=== PATIENT | male | born 1965 | race Caucasian/White ===

== ENCOUNTER 2019-04-23 09:34 | Inpatient (IN) | payer OTHER ==
[2019-04-23 10:28] VITALS: BMI 34.4
--- NOTE | 2019-04-23 11:01 | HP ---
CIWA Score Nausea/Vomitin Muscle Tremors: 2 Anxiety: 2 Agitation: 2 Paroxysmal Sweats: 1-Minimal Palms Moist Orientation: 0-Oriented Tacttile Disturbances: 1-Very Mild Itch/Numbness Auditory Disturbances: 1-Very Mild Visual Disturbances: 0-None Headache: 2-Mild CIWA-Ar Total Score: 13 - Admission Criteria OASAS Guidelines: Admission for Medically Managed Detox: Requires at least one of the followin. CIWA greater than 12 2. Seizures within the past 24 hours 3. Delirium tremens within the past 24 hours 4. Hallucinations within the past 24 hours 5. Acute intervention needed for co occurring medical disorder 6. Acute intervention needed for co occurring psychiatric disorder 7. Severe withdrawal that cannot be handled at a lower level of care (continued vomiting, continued diarrhea, abnormal vital signs) requiring intravenous medication and/or fluids 8. Admission ROS S - HPI Chief Complaint: i need help to stop drinking alcohol Allergies/Adverse Reactions: Allergies Allergy/AdvReac Type Severity Reaction Status Date / Time adhesive tape Allergy Rash Verified 04/23/19 10:06 peaches Allergy Mild Uncoded 04/23/19 10:06 apples Allergy Uncoded 04/23/19 10:06 pear Allergy Uncoded 04/23/19 10:06 strawberry Allergy Uncoded 04/23/19 10:06 History of Present Illness: this 53 years old male with alcohol dependence,seeking detox,withdrawal symptom, never been in detox before history of hypertension,lap sleeve gastrectomy 2016, nicotine dependence 3 cigarette/day plan for rehab after detox Exam Limitations: No Limitations - Ebola screening Have you traveled outside of the country in the last 21 days: No Have you had contact with anyone from an Ebola affected area: No Do you have a fever: No - Review of Systems Constitutional: Night Sweats, Changes in sleep EENT: reports: Nose Congestion Respiratory: reports: No Symptoms reported Cardiac: reports: No Symptoms Reported GI: reports: Nausea, Poor Appetite, Abdominal cramping : reports: No Symptoms Reported, Other (history of sleeve gastrectomy) Musculoskeletal: reports: Back Pain, Muscle Pain Integumentary: reports: Dryness Neuro: reports: No Symptoms reported Endocrine: reports: No Symptoms Reported Hematology: reports: No Symptoms Reported Psychiatric: reports: No Sypmtoms Reported, Judgement Intact, Mood/Affect Appropiate, Orientated x3 Other Systems: Reviewed and Negative Patient History - Patient Medical History Hx Anemia: No Hx Asthma: No Hx Chronic Obstructive Pulmonary Disease (COPD): No Hx Cancer: No Hx Cardiac Disorders: No Hx Congestive Heart Failure: No Hx Hypertension: Yes (on med) Hx Hypercholesterolemia: No Hx Pacemaker: No HX Cerebrovascular Accident: No Hx Seizures: No Hx Dementia: No Hx Diabetes: No Hx Gastrointestinal Disorders: Yes (sleeve gastretomy lap in 2016) Hx Liver Disease: Yes (history of cirrhosis of liver ) Hx Genitourinary Disorders: No Hx Sexually Transmitted Disorders: No Hx Renal Disease (ESRD): No Hx Thyroid Disease: No Hx Human Immunodeficiency Virus (HIV): No (never been tested) Hx Hepatitis C: No Hx Depression: No Hx Suicide Attempt: No Hx Bipolar Disorder: No Hx Schizophrenia: No Other Medical History: no suicidal,no homicidal - Patient Surgical History Past Surgical History: Yes Other Surgical History: lap sleeve gasrectomy in 2016 - PPD History Previous Implant?: Yes Implanted On Prior R Admission?: No PPD to be Administered?: Yes - Smoking Cessation Smoking history: Current every day smoker Have you smoked in the past 12 months: Yes Aproximately how many cigarettes per day: 4 Cigars Per Day: 0 Hx Chewing Tobacco Use: No Initiated information on smoking cessation: Yes 'Breaking Loose' booklet given: 04/23/19 - Substance & Tx. History Hx Alcohol Use: Yes Hx Substance Use: No Substance Use Type: Alcohol Hx Substance Use Treatment: No - Substances abused Alcohol Substance route: Oral Frequency: Daily Amount used: 6 cups of wine a day, shots of whisky Age of first use: 50 Date of last use: 04/22/19 Family Disease History - Family Disease History Family Disease History: Other: Brother (alcohol), Sister (alcohol) Admission Physical Exam BHS - Vital Signs Vital Signs: Vital Signs - 24 hr 04/23/19 04/23/19 10:19 10:52 Temperature 98.4 F 98.4 F Pulse Rate 67 67 Respiratory 20 20 Rate Blood Pressure 110/68 110/68 - Physical General Appearance: Yes: Moderate Distress, Tremorous, Irritable, Sweating, Anxious HEENTM: Yes: Normal ENT Inspection, JAYY, Pharynx Normal Respiratory: Yes: Lungs Clear, Normal Breath Sounds, No Respiratory Distress Breast: Yes: Within Normal Limits Cardiology: Yes: Within Normal Limits, Regular Rhythm, Regular Rate, S1, S2 Abdominal: Yes: Within Normal Limits, Normal Bowel Sounds, Non Tender, Flat, Soft, Surgical Scar (s/p lap sleee gasrectomy) Genitourinary: Yes: Within Normal Limits Back: Yes: Muscle Spasm Extremities: Yes: Tremors Neurological: Yes: tablet coater II-XII NML intact, Fully Oriented, Alert, Motor Strength 5/5 Integumentary: Yes: Dry Lymphatic: Yes: Within Normal Limits - Diagnostic (1) Alcohol dependence with uncomplicated withdrawal Current Visit: Yes Status: Acute (2) Obese Current Visit: Yes Status: Acute (3) Nicotine dependence Current Visit: Yes Status: Acute (4) History of type 2 diabetes mellitus Current Visit: Yes Status: Acute (5) History of hypertension Current Visit: Yes Status: Acute (6) Cirrhosis of liver Current Visit: Yes Status: Acute (7) Status post laparoscopic sleeve gastrectomy Current Visit: Yes Status: Acute Cleared for Admission S - Detox or Rehab S Level of Care: Medically Managed Detox Regimen/Protocol: Librium Breathalyzer - Breathalyzer Breathalyzer: 0.179 Urine Drug Screen - Test Device Lot number: [id number] Expiration date: 12/28/20 - Control Is test valid?: Yes - Results Drug screen NEGATIVE: No Urine drug screen results: THC-Marijuana Inpatient Rehab Admission - Rehab Decision to Admit Inpatient rehab admission?: No
[2019-04-23] MEDS ORDERED: chlordiazePOXIDE HCL 25 MG CAPSULE PO PRN (11:19)
[2019-04-23] MEDS ORDERED: ACETAMINOPHEN 325 MG TABLET (FP) PO PRN ×2 (11:19)
[2019-04-23] MEDS ORDERED: BISMUTH SUBSALICYLATE 262 MG/15 ML BTL PO PRN (11:19)
[2019-04-23] MEDS ORDERED: METHOCARBAMOL 500 MG TABLET PO PRN (11:19)
[2019-04-23] MEDS ORDERED: IBUPROFEN 400 MG TABLET (FP) PO PRN (11:19)
[2019-04-23] MEDS ORDERED: MENTHOL/PHENOL 1 EACH UD MM PRN (11:19)
[2019-04-23] MEDS ORDERED: MAG HYDROX/AL HYDROX/SIMETH 30 ML UNIT-DOSE CUP PO PRN (11:19)
[2019-04-23] MEDS ORDERED: MAGNESIUM CITRATE 300 ML BOTTLE PO PRN (11:19)
[2019-04-23] MEDS ORDERED: MAGNESIUM HYDROX 2400MG/30ML ORAL SUSPENSION 30 ML CUP PO PRN (11:19)
--- NOTE | 2019-04-23 13:49 | EKG ---
Test Reason : Blood Pressure : / mmHG Vent. Rate : 066 BPM Atrial Rate : 066 BPM P-R Int : 156 ms QRS Dur : 100 ms QT Int : 406 ms P-R-T Axes : -08 -11 014 degrees QTc Int : 425 ms NORMAL SINUS RHYTHM NORMAL ECG NO PREVIOUS ECGS AVAILABLE Confirmed by CLAUDIA HAWKINS MD ([id number]) on 04/23/2019 1:48:36 PM Referred By: Confirmed By:CLAUDIA HAWKINS MD
[2019-04-23 15:36] LABS: HEMOGLOBIN 11.2 GM/dL (11.7-16.9); MCH 31.9 pg (25.7-33.7); MCHC 32.8 g/dl (32.0-35.9); MEAN PLT VOLUME 11.7 fl (7.5-11.1); PLATELET COUNT 98 K/MM3 (134-434); RDW 19.5 % (11.9-15.9)
[2019-04-23 16:04] LABS: ALBUMIN 2.9 g/dl (3.4-5.0); BLOOD UREA NITROGEN 7.2 mg/dL (7-18); CALCIUM 8.5 mg/dL (8.5-10.1); CREATININE 0.6 mg/dL (0.55-1.3); POTASSIUM 4.1 mmol/L (3.5-5.1); TOT PROT 8.6 g/dl (6.4-8.2)
[2019-04-23] MEDS: chlordiazePOXIDE HCL 25 MG CAPSULE PO SCH ×2 (17:22→22:16)
[2019-04-23 17:38] LABS: PH,URINE 5.5 (5.0-8.0); URINE APPEARANCE CLEAR; URINE BILIRUBIN 1+ (NEGATIVE); URINE COLOR DK YELLOW; URINE GLUCOSE (UA) NEGATIVE (NEGATIVE); URINE KETONE NEGATIVE (NEGATIVE); URINE LEUK ESTERASE NEGATIVE (NEGATIVE); URINE NITRITE NEGATIVE (NEGATIVE); URINE PROTEIN TRACE (NEGATIVE)
[2019-04-23] MEDS: NADOLOL 20 MG TABLET (FP) PO SCH (22:16)
[2019-04-23] MEDS: THIAMINE HCL 100 MG TABLET (FP) PO SCH (22:16)
[2019-04-23] MEDS: MELATONIN 5 MG TABLETS PO PRN (22:16)
[2019-04-24] MEDS: hydrOXYzine PAMOATE 25 MG CAPSULE (FP) PO PRN (01:48)
[2019-04-24] MEDS: chlordiazePOXIDE HCL 25 MG CAPSULE PO SCH ×2 (06:02→10:02)
[2019-04-24] MEDS ORDERED: NADOLOL 20 MG TABLET (FP) PO SCH (10:00)
[2019-04-24] MEDS ORDERED: HYDROCHLOROTHIAZIDE PO SCH (10:00)
[2019-04-24] MEDS ORDERED: IRBESARTAN PO SCH (10:00)
[2019-04-24] MEDS: IRBESARTAN PO SCH (10:02)
[2019-04-24] MEDS: NADOLOL 20 MG TABLET (FP) PO SCH ×2 (10:02→22:25)
[2019-04-24] MEDS: PANTOPRAZOLE 40 MG TABLET (FP) PO SCH (10:02)
[2019-04-24] MEDS: PRENATAL VITAMINS W/ FOLIC ACID TABLET (FP) PO SCH (10:03)
[2019-04-24] MEDS ORDERED: LORazepam 1 MG TABLET PO PRN (14:47)
--- NOTE | 2019-04-24 14:51 | PN ---
S CIWA - CIWA Score Nausea/Vomitin Muscle Tremors: 3 Anxiety: 3 Agitation: 2 Paroxysmal Sweats: No Perspiration Orientation: 0-Oriented Tacttile Disturbances: 2-Mild Itch/Numbness/Burn Auditory Disturbances: 0-None Visual Disturbances: 2-Mild Sensitivity Headache: 0-None Present CIWA-Ar Total Score: 14 BHS Progress Note (SOAP) Subjective: Anxious, Tremors, Nausea, Fatigue. Objective: PATIENT A & O X 3, OBSERVED AMBULATING ON UNIT UNASSISTED. IN NO ACUTE DISTRESS. PATIENT AFEBRILE. 04/24/19 14:45 Vital Signs Temperature 98.3 F 04/24/19 13:21 Pulse Rate 73 04/24/19 13:21 Respiratory Rate 18 04/24/19 13:21 Blood Pressure 132/74 04/24/19 13:21 O2 Sat by Pulse Oximetry (%) Laboratory Tests 04/23/19 04/23/19 04/23/19 11:30 11:30 11:30 WBC 11.0 H RBC 3.50 L Hgb 11.2 L Hct 34.0 L MCV 97.0 H MCH 31.9 MCHC 32.8 RDW 19.5 H Plt Count 98 L MPV 11.7 H Sodium 141 Potassium 4.1 Chloride 107 Carbon Dioxide 27 Anion Gap 7 L BUN 7.2 Creatinine 0.6 Est GFR (CKD-EPI)AfAm 134.92 Est GFR (CKD-EPI)NonAf 116.41 Random Glucose 91 Calcium 8.5 Total Bilirubin 3.0 H AST 204 H ALT 50 Alkaline Phosphatase 350 H Total Protein 8.6 H Albumin 2.9 L Urine Color Urine Appearance Urine pH Ur Specific [place] Urine Protein Urine Glucose (UA) Urine Ketones Urine Blood Urine Nitrite Urine Bilirubin Urine Urobilinogen Ur Leukocyte Esterase RPR Titer Nonreactive 04/23/19 17:18 WBC RBC Hgb Hct MCV MCH MCHC RDW Plt Count MPV Sodium Potassium Chloride Carbon Dioxide Anion Gap BUN Creatinine Est GFR (CKD-EPI)AfAm Est GFR (CKD-EPI)NonAf Random Glucose Calcium Total Bilirubin AST ALT Alkaline Phosphatase Total Protein Albumin Urine Color Dk yellow Urine Appearance Clear Urine pH 5.5 Ur Specific [place] 1.017 Urine Protein Trace Urine Glucose (UA) Negative Urine Ketones Negative Urine Blood Negative Urine Nitrite Negative Urine Bilirubin 1+ H Urine Urobilinogen 1.0 Ur Leukocyte Esterase Negative RPR Titer LABS NOTED. 06/25/19 14:51 Assessment: 04/24/19 14:49 WITHDRAWAL SYMPTOMS. ELEVATED LIVER ENZYMES (AST, ALKALINE PHOSPHATASE) HYPERBILIRUBINEMIA LEUKOCYTOSIS. ANEMIA. THROMBOCYTOPENIA. 04/24/19 14:49 Plan: CONTINUE DETOX. INCREASE DAILY PO WATER INTAKE. REPEAT CBC FOR ELEVATED ADMISSION WBC LEVEL. PATIENT IS CURRENTLY RECEIVING DAILY MVI CONTAINING B VITAMINS AND IRON WHILE ADMITTED FOR DETOX. CHANGE FROM LIBRIUM DETOX PROTOCOL TO ATIVAN DETOX PROTOCOL DUE TO SIGNIFICANTLY ELEVATED ADMISSION LIVER ENZYMES AND BILIRUBIN LEVELS. HEPATIC FUNCTION PANEL ORDERED FOR TOMORROW AM TO SEE IF ANY CHANGE FROM ADMISSION ELEVATED LIVER ENZYME AND TOTAL BILIRUBIN LEVELS.
[2019-04-24] MEDS ORDERED: chlordiazePOXIDE HCL 25 MG CAPSULE PO SCH (17:00)
[2019-04-24 17:12] LABS: EOS % 6.4 % (0-4.5); HEMOGLOBIN 11.2 GM/dL (11.7-16.9); LYMPH % 8.1 % (8-40); MCHC 32.8 g/dl (32.0-35.9); MEAN CELL VOLUME 97.8 fl (80-96); MEAN PLT VOLUME 11.4 fl (7.5-11.1); MONO % 6.4 % (3.8-10.2); NEUT % 78.1 % (42.8-82.8); PLATELET COUNT 70 K/MM3 (134-434); RBC 3.48 M/mm3 (4.00-5.60); WHITE BLOOD COUNT 10.3 K/mm3 (4.0-10.0)
[2019-04-24] MEDS: LORazepam 1 MG TABLET PO SCH ×2 (17:35→22:25)
[2019-04-24] MEDS: THIAMINE HCL 100 MG TABLET (FP) PO SCH (22:25)
[2019-04-24] MEDS: MELATONIN 5 MG TABLETS PO PRN (22:26)
[2019-04-25] MEDS: hydrOXYzine PAMOATE 25 MG CAPSULE (FP) PO PRN ×2 (00:29→22:21)
[2019-04-25] MEDS: LORazepam 1 MG TABLET PO SCH ×2 (05:28→10:31)
[2019-04-25] MEDS: IRBESARTAN PO SCH (10:30)
[2019-04-25] MEDS: PANTOPRAZOLE 40 MG TABLET (FP) PO SCH (10:31)
[2019-04-25] MEDS: PRENATAL VITAMINS W/ FOLIC ACID TABLET (FP) PO SCH (10:31)
[2019-04-25] MEDS: NADOLOL 20 MG TABLET (FP) PO SCH ×2 (10:31→22:19)
[2019-04-25 13:02] LABS: ALBUMIN 2.5 g/dl (3.4-5.0); BILIRUBIN,DIRECT 3.5 mg/dL (0.0-0.2); BILIRUBIN,TOTAL 4.5 mg/dL (0.2-1)
[2019-04-25] MEDS ORDERED: LORazepam 0.5 MG TABLET PO PRN (14:50)
--- NOTE | 2019-04-25 14:54 | PN ---
S CIWA - CIWA Score Nausea/Vomitin-No Nausea/No Vomiting Muscle Tremors: 2 Anxiety: 2 Agitation: 1-Slight > Activity Paroxysmal Sweats: No Perspiration Orientation: 0-Oriented Tacttile Disturbances: 2-Mild Itch/Numbness/Burn Auditory Disturbances: 0-None Visual Disturbances: 2-Mild Sensitivity Headache: 0-None Present CIWA-Ar Total Score: 9 BHS Progress Note (SOAP) Subjective: Body Aches, Fatigue, Tremors. Objective: PATIENT A & O X 3, OBSERVED AMBULATING ON UNIT UNASSISTED. IN NO ACUTE DISTRESS. 04/25/19 14:55 Vital Signs Temperature 99.9 F H 04/25/19 13:06 Pulse Rate 76 04/25/19 13:06 Respiratory Rate 20 04/25/19 13:06 Blood Pressure 117/71 04/25/19 13:06 O2 Sat by Pulse Oximetry (%) Laboratory Tests 04/23/19 04/23/19 04/23/19 11:30 11:30 11:30 WBC 11.0 H RBC 3.50 L Hgb 11.2 L Hct 34.0 L MCV 97.0 H MCH 31.9 MCHC 32.8 RDW 19.5 H Plt Count 98 L MPV 11.7 H Absolute Neuts (auto) Neutrophils % Lymphocytes % Monocytes % Eosinophils % Basophils % Nucleated RBC % Sodium 141 Potassium 4.1 Chloride 107 Carbon Dioxide 27 Anion Gap 7 L BUN 7.2 Creatinine 0.6 Est GFR (CKD-EPI)AfAm 134.92 Est GFR (CKD-EPI)NonAf 116.41 Random Glucose 91 Calcium 8.5 Total Bilirubin 3.0 H Direct Bilirubin AST 204 H ALT 50 Alkaline Phosphatase 350 H Total Protein 8.6 H Albumin 2.9 L Urine Color Urine Appearance Urine pH Ur Specific [place] Urine Protein Urine Glucose (UA) Urine Ketones Urine Blood Urine Nitrite Urine Bilirubin Urine Urobilinogen Ur Leukocyte Esterase RPR Titer Nonreactive 04/23/19 04/24/19 04/25/19 17:18 13:30 09:27 WBC 10.3 H RBC 3.48 L Hgb 11.2 L Hct 34.0 L MCV 97.8 H MCH 32.0 MCHC 32.8 RDW 19.0 H Plt Count 70 L D MPV 11.4 H Absolute Neuts (auto) 8.1 H Neutrophils % 78.1 Lymphocytes % 8.1 Monocytes % 6.4 Eosinophils % 6.4 H Basophils % 1.0 Nucleated RBC % 0 Sodium Potassium Chloride Carbon Dioxide Anion Gap BUN Creatinine Est GFR (CKD-EPI)AfAm Est GFR (CKD-EPI)NonAf Random Glucose Calcium Total Bilirubin 4.5 H Direct Bilirubin 3.5 H AST 133 H ALT 36 Alkaline Phosphatase 276 H Total Protein 7.0 Albumin 2.5 L Urine Color Dk yellow Urine Appearance Clear Urine pH 5.5 Ur Specific [place] 1.017 Urine Protein Trace Urine Glucose (UA) Negative Urine Ketones Negative Urine Blood Negative Urine Nitrite Negative Urine Bilirubin 1+ H Urine Urobilinogen 1.0 Ur Leukocyte Esterase Negative RPR Titer LABS NOTED. RESULTS OF HEPATIC FUNCTION PANEL AND OF REPEAT CBC NOTED. WBC LEVEL NOTED TO BE LOWER ON REPEAT THAN ON ADMISSION CBC. NO RECENT HISTORY OF INTRAVENOUS DRUG USE REPORTED BY PATIENT ON DETOX ADMISSION HISTORY AND PHYSICAL ASSESSMENT. RESULTS DISCUSSED WITH PATIENT. PATIENT ADVISED TO FOLLOW-UP WITH AGRICULTURAL [facility] AFTER DISCHARGE FROM DETOX FOR GENERAL MEDICAL ASSESSMENT AND FOR ELEVATED LIVER ENZYMES AND BILURUBIN LEVELS AND FOR ANEMIA, LEUKOCYTOSIS, AND THROMBOCYTOPENIA NOTED ON DETOX ADMISSION AND REPEAT LABORATORY ASSESSMENT. PATIENT VERBALIZED UNDERSTANDING OF RECOMMENDATION. COPIES OF RESULTS OF ALL LABS DRAWN WHILE ADMITTED FOR DETOX WILL BE GIVEN TO PATIENT AT TIME OF DISCHARGE FROM DETOX UNIT 04/25/19 14:58 Assessment: 04/25/19 14:59 WITHDRAWAL SYMPTOMS. ANEMIA. LEUKOCYTOSIS. THROMBOCYTOPENIA. ELEVATED LIVER ENZYMES (AST, AP). HYPERBILIRUBINEMIA. Plan: CONTINUE DETOX. INCREASE DAILY PO WATER INTAKE.
[2019-04-25] MEDS ORDERED: chlordiazePOXIDE HCL 10 MG CAPSULE PO PRN (17:00)
[2019-04-25] MEDS ORDERED: chlordiazePOXIDE HCL 10 MG CAPSULE PO SCH (17:00)
[2019-04-25] MEDS: LORazepam 0.5 MG TABLET PO SCH ×2 (17:39→22:20)
[2019-04-25] MEDS: THIAMINE HCL 100 MG TABLET (FP) PO SCH (22:20)
[2019-04-26] MEDS: LORazepam 0.5 MG TABLET PO SCH ×3 (05:27→17:57)
[2019-04-26] MEDS: PANTOPRAZOLE 40 MG TABLET (FP) PO SCH (10:36)
[2019-04-26] MEDS: NADOLOL 20 MG TABLET (FP) PO SCH ×2 (10:36→22:26)
[2019-04-26] MEDS: PRENATAL VITAMINS W/ FOLIC ACID TABLET (FP) PO SCH (10:36)
[2019-04-26] MEDS: IRBESARTAN PO SCH (10:36)
--- NOTE | 2019-04-26 14:50 | PN ---
S CIWA - CIWA Score Nausea/Vomitin-No Nausea/No Vomiting Muscle Tremors: None Anxiety: 2 Agitation: 2 Paroxysmal Sweats: No Perspiration Orientation: 0-Oriented Tacttile Disturbances: 1-Very Mild Itch/Numbness Auditory Disturbances: 0-None Visual Disturbances: 1-Very Mild Sensitivity Headache: 0-None Present CIWA-Ar Total Score: 6 BHS Progress Note (SOAP) Subjective: Body Aches, Fatigue. Patient Reports That Withdrawal / Detox Symptoms are subsiding in severity. Objective: PATIENT A & O X 3, OBSERVED AMBULATING ON UNIT UNASSISTED. IN NO ACUTE DISTRESS. 04/26/19 14:48 Vital Signs Temperature 98.1 F 04/26/19 13:06 Pulse Rate 78 04/26/19 13:06 Respiratory Rate 18 04/26/19 13:06 Blood Pressure 109/67 04/26/19 13:06 O2 Sat by Pulse Oximetry (%) Laboratory Tests 04/23/19 04/23/19 04/23/19 11:30 11:30 11:30 WBC 11.0 H RBC 3.50 L Hgb 11.2 L Hct 34.0 L MCV 97.0 H MCH 31.9 MCHC 32.8 RDW 19.5 H Plt Count 98 L MPV 11.7 H Absolute Neuts (auto) Neutrophils % Lymphocytes % Monocytes % Eosinophils % Basophils % Nucleated RBC % Sodium 141 Potassium 4.1 Chloride 107 Carbon Dioxide 27 Anion Gap 7 L BUN 7.2 Creatinine 0.6 Est GFR (CKD-EPI)AfAm 134.92 Est GFR (CKD-EPI)NonAf 116.41 Random Glucose 91 Calcium 8.5 Total Bilirubin 3.0 H Direct Bilirubin AST 204 H ALT 50 Alkaline Phosphatase 350 H Total Protein 8.6 H Albumin 2.9 L Urine Color Urine Appearance Urine pH Ur Specific [place] Urine Protein Urine Glucose (UA) Urine Ketones Urine Blood Urine Nitrite Urine Bilirubin Urine Urobilinogen Ur Leukocyte Esterase RPR Titer Nonreactive 04/23/19 04/24/19 04/25/19 17:18 13:30 09:27 WBC 10.3 H RBC 3.48 L Hgb 11.2 L Hct 34.0 L MCV 97.8 H MCH 32.0 MCHC 32.8 RDW 19.0 H Plt Count 70 L D MPV 11.4 H Absolute Neuts (auto) 8.1 H Neutrophils % 78.1 Lymphocytes % 8.1 Monocytes % 6.4 Eosinophils % 6.4 H Basophils % 1.0 Nucleated RBC % 0 Sodium Potassium Chloride Carbon Dioxide Anion Gap BUN Creatinine Est GFR (CKD-EPI)AfAm Est GFR (CKD-EPI)NonAf Random Glucose Calcium Total Bilirubin 4.5 H Direct Bilirubin 3.5 H AST 133 H ALT 36 Alkaline Phosphatase 276 H Total Protein 7.0 Albumin 2.5 L Urine Color Dk yellow Urine Appearance Clear Urine pH 5.5 Ur Specific [place] 1.017 Urine Protein Trace Urine Glucose (UA) Negative Urine Ketones Negative Urine Blood Negative Urine Nitrite Negative Urine Bilirubin 1+ H Urine Urobilinogen 1.0 Ur Leukocyte Esterase Negative RPR Titer LABS NOTED. PATIENT REPORTS HISTORY OF CIRRHOSIS OF LIVER AND OF FATTY LIVER. PATIENT ADVISED TO FOLLOW-UP WITH BELT DRESSER FOR FOR THIS WHEN POSSIBLE AFTER DISCHARGE FROM DETOX UNIT. PATIENT VERBALIZED UNDERSTANDING OF RECOMMENDATION. 04/26/19 14:51 Assessment: 04/26/19 14:50 WITHDRAWAL SYMPTOMS. ANEMIA. LEUKOCYTOSIS (REDUCED FROM ADMISSION CBC TO REPEAT CBC). THROMBOCYTOPENIA. ELEVATED LIVER ENZYMES (AST, AP). HYPERBILIRUBINEMIA. 04/26/19 14:52 Plan: CONTINUE DETOX,. INCREASE DAILY PO WATER INTAKE. PATIENT SCHEDULED FOR DISCHARGE FROM DETOX UNIT TOMORROW.
[2019-04-26] MEDS ORDERED: chlordiazePOXIDE HCL 10 MG CAPSULE PO SCH (17:00)
[2019-04-26] MEDS: THIAMINE HCL 100 MG TABLET (FP) PO SCH (22:26)
[2019-04-26] MEDS: hydrOXYzine PAMOATE 25 MG CAPSULE (FP) PO PRN (22:27)
[2019-04-27 06:45] VITALS: TEMP 97.6
--- NOTE | 2019-04-27 08:20 | PN ---
[facility] CIWA - CIWA Score Nausea/Vomitin-No Nausea/No Vomiting Muscle Tremors: 1-None Visible, but [place] Anxiety: 0-No Anxiety, at Ease Agitation: 0-Normal Activity Paroxysmal Sweats: No Perspiration Orientation: 0-Oriented Tacttile Disturbances: 0-None Auditory Disturbances: 0-None Visual Disturbances: 0-None Headache: 1-Very Mild CIWA-Ar Total Score: 2 BHS Progress Note (SOAP) Subjective: alert,no complaint Objective: 04/27/19 08:18 Vital Signs Temperature 97.6 F 04/27/19 06:43 Pulse Rate 71 04/27/19 06:43 Respiratory Rate 18 04/27/19 06:43 Blood Pressure 105/63 04/27/19 06:43 O2 Sat by Pulse Oximetry (%) Assessment: 04/27/19 08:19 detox completed,no withdrawal symptom 04/27/19 08:19 Plan: discharge today,[facility] and [facility] for medical problem
--- NOTE | 2019-04-27 08:24 | DS ---
[facility] Detox Discharge Summary Admission Date: 04/23/19 Discharge Date: 04/27/19 - History Present History: Alcohol Dependence Additional Comments: follow up with after care program as arrangement and family doctor for medial problem Pertinent Past History: obesity nicotine dependence history of type 2 dm history of hypertension history of lap sleeve gastrectomy - Physical Exam Results Vital Signs: Vital Signs Temperature 97.6 F 04/27/19 06:43 Pulse Rate 71 04/27/19 06:43 Respiratory Rate 18 04/27/19 06:43 Blood Pressure 105/63 04/27/19 06:43 O2 Sat by Pulse Oximetry (%) Pertinent Admission Physical Exam Findings: withdrawal signs and symptom Laboratory Last Values WBC 10.3 K/mm3 (4.0-10.0) H 04/24/19 13:30 RBC 3.48 M/mm3 (4.00-5.60) L 04/24/19 13:30 Hgb 11.2 GM/dL (11.7-16.9) L 04/24/19 13:30 Hct 34.0 % (35.4-49) L 04/24/19 13:30 MCV 97.8 fl (80-96) H 04/24/19 13:30 MCH 32.0 pg (25.7-33.7) 04/24/19 13:30 MCHC 32.8 g/dl (32.0-35.9) 04/24/19 13:30 RDW 19.0 % (11.9-15.9) H 04/24/19 13:30 Plt Count 70 K/MM3 (134-434) L D 04/24/19 13:30 MPV 11.4 fl (7.5-11.1) H 04/24/19 13:30 Absolute Neuts (auto) 8.1 K/mm3 (1.5-8.0) H 04/24/19 13:30 Neutrophils % 78.1 % (42.8-82.8) 04/24/19 13:30 Lymphocytes % 8.1 % (8-40) 04/24/19 13:30 Monocytes % 6.4 % (3.8-10.2) 04/24/19 13:30 Eosinophils % 6.4 % (0-4.5) H 04/24/19 13:30 Basophils % 1.0 % (0-2.0) 04/24/19 13:30 Nucleated RBC % 0 % (0-0) 04/24/19 13:30 Sodium 141 mmol/L (136-145) 04/23/19 11:30 Potassium 4.1 mmol/L (3.5-5.1) 04/23/19 11:30 Chloride 107 mmol/L (98-107) 04/23/19 11:30 Carbon Dioxide 27 mmol/L (21-32) 04/23/19 11:30 Anion Gap 7 MMOL/L (8-16) L 04/23/19 11:30 BUN 7.2 mg/dL (7-18) 04/23/19 11:30 Creatinine 0.6 mg/dL (0.55-1.3) 04/23/19 11:30 Est GFR (CKD-EPI)AfAm 134.92 04/23/19 11:30 Est GFR (CKD-EPI)NonAf 116.41 04/23/19 11:30 Random Glucose 91 mg/dL (74-106) 04/23/19 11:30 Calcium 8.5 mg/dL (8.5-10.1) 04/23/19 11:30 Total Bilirubin 4.5 mg/dL (0.2-1) H 04/25/19 09:27 Direct Bilirubin 3.5 mg/dL (0.0-0.2) H 04/25/19 09:27 AST 133 U/L (15-37) H 04/25/19 09:27 ALT 36 U/L (13-61) 04/25/19 09:27 Alkaline Phosphatase 276 U/L (45-117) H 04/25/19 09:27 Total Protein 7.0 g/dl (6.4-8.2) 04/25/19 09:27 Albumin 2.5 g/dl (3.4-5.0) L 04/25/19 09:27 Urine Color Dk yellow 04/23/19 17:18 Urine Appearance Clear 04/23/19 17:18 Urine pH 5.5 (5.0-8.0) 04/23/19 17:18 Ur Specific [place] 1.017 (1.010-1.035) 04/23/19 17:18 Urine Protein Trace (NEGATIVE) 04/23/19 17:18 Urine Glucose (UA) Negative (NEGATIVE) 04/23/19 17:18 Urine Ketones Negative (NEGATIVE) 04/23/19 17:18 Urine Blood Negative (NEGATIVE) 04/23/19 17:18 Urine Nitrite Negative (NEGATIVE) 04/23/19 17:18 Urine Bilirubin 1+ (NEGATIVE) H 04/23/19 17:18 Urine Urobilinogen 1.0 mg/dL (0.2-1.0) 04/23/19 17:18 Ur Leukocyte Esterase Negative (NEGATIVE) 04/23/19 17:18 RPR Titer Nonreactive (NONREACTIVE) 04/23/19 11:30 - Treatment Hospital Course: Detox Protocol Followed, Detoxed Safely, Responded well, Discharged Condition Good Patient has Accepted a Rehab Referral to: declined - Medication Discharge Medications: Ambulatory Orders Irbesartan-Hctz 300-12.5 mg Tb 04/23/19 Nadolol 20 mg BID 04/23/19 Pantoprazole Sodium 40 mg PO DAILY 04/23/19 - Diagnosis (1) Alcohol dependence with uncomplicated withdrawal Current Visit: Yes Status: Acute (2) Obese Current Visit: Yes Status: Acute (3) Nicotine dependence Current Visit: Yes Status: Acute (4) History of type 2 diabetes mellitus Current Visit: Yes Status: Acute (5) History of hypertension Current Visit: Yes Status: Acute (6) Cirrhosis of liver Current Visit: Yes Status: Acute (7) Status post laparoscopic sleeve gastrectomy Current Visit: Yes Status: Acute - AMA Did Patient Leave Against Medical Advice: No
[2019-04-27 09:29] VITALS: BP 132/80; PULSE 79
== END 2019-04-27 08:45 | disposition home or self-care (01) | DRG 775 ==
LOC: YASAS 09:34 → Y3N 11:44
PROVIDERS: ADMIT Surgery; ATTEND Surgery
PROC: HZ2ZZZZ Detoxification Services for Substance Abuse Treatment (ICD-10-PCS; principal; 2019-04-23)
DX: F10.230 Alcohol dependence with withdrawal, uncomplicated (principal); F17.210 Nicotine dependence, cigarettes, uncomplicated; D69.6 Thrombocytopenia, unspecified; D64.9 Anemia, unspecified; D72.829 Elevated white blood cell count, unspecified; E80.6 Other disorders of bilirubin metabolism; K74.60 Unspecified cirrhosis of liver; E66.9 Obesity, unspecified; Z68.34 Body mass index [BMI] 34.0-34.9, adult; Z86.79 Personal history of other diseases of the circulatory system; Z86.39 Personal history of other endocrine, nutritional and metabolic disease; Z98.84 Bariatric surgery status
CPT/HCPCS: 36415; 80053; 80076; 81003; 85025; 85027; 86593; 93005; 93010